=== PATIENT | male | born 1940 | race Caucasian/White ===

== ENCOUNTER → 2016-10-11 | Outpatient (CLI) | payer MEDICARE, BC ==
--- NOTE | 2016-10-11 10:22 | CT ---
EXAMINATION TYPE: CT chest wo con DATE OF EXAM: 10/11/2016 8:15 AM COMPARISON: NONE HISTORY: Cough for 3-[address] DLP: 460.4 mGycm, Automated exposure control for dose reduction was used. CONTRAST: None TECHNIQUE: Axial images were obtained at 1 mm thick sections at 10 mm intervals. This will limit po rtions of the examination which may not be visualized within the [id number]. Images were obtained in the prone and supine views. FINDINGS: Portion of the thyroid visualized is normal. No suspicious lung nodules or focal infiltrat es are present. Emphysematous blebs and bulla are present in the upper lung [place] larger on the righ t. There appears to be changes of pulmonary fibrosis within the lung bases bilaterally, greater on th e left. This appears stable between prone and supine views. Bronchiectasis is not identified. Signifi cant chronic bronchitis not readily apparent. No enlarged mediastinal or hilar adenopathy is evident. There is some shotty lymphadenopathy within the pretracheal space. The ascending aorta diameter at the level of the main pulmonary artery is 3.9 cm. The main pulmonary artery diameter at the bifurcation is 3.1 cm. Coronary artery calcification is noted. Limited CT sections are obtained through the upper abdomen. Abdomen is essentially unremarkable. IMPRESSIONS: 1. Emphysematous changes and pulmonary fibrosis.
== END | disposition home or self-care (01) ==
LOC: RADCTMAIN 07:42
PROVIDERS: ATTEND Internal Medicine
DX: J43.9 Emphysema, unspecified (principal); J84.10 Pulmonary fibrosis, unspecified
CPT/HCPCS: 71250

== ENCOUNTER → 2017-05-01 | Outpatient (CLI) | payer MEDICARE, BC ==
[2017-05-01 10:48] LABS: Blood Urea Nitrogen 18 mg/dL (9-20); Non-African American GFR(MDRD) >60 (>60 ml/min/1.73 sqM)
--- NOTE | 2017-05-01 11:34 | CT ---
EXAMINATION TYPE: CT angio abdomen DATE OF EXAM: 05/01/2017 COMPARISON: NONE HISTORY: AAA CT DLP: 719.8 mGycm, Automated Exposure Control for Dose Reduction was Utilized. CONTRAST: CTA scan of the abdomen and pelvis is performed without oral and without and with IV Contrast, patien t injected with 100 mL of Omnipaque 350. Three-D reconstructed images are created on independent work station and reviewed. FINDINGS: VASCULAR: There is moderate calcified plaque throughout the aorta. There is more prominent noncalcif ied plaque in the distal abdominal aorta. There is ectasia of the abdominal aorta with aneurysm measu ring 4.9 x 4.2 cm on axial image 52 series 5 identified. Approximately 60% of the lumen is thrombosed with roughly 40% patency remaining present. Length of aneurysm is approximately 5 cm on series 11 im age 15. Aneurysm does not extend into common iliac arteries bilaterally. There is patent celiac axis, SMA, bilateral single renal arteries, and HEIDI identified without signifi cant stenosis. Left renal artery shows branching shortly after its origin. There is moderate plaque i n common iliac arteries bilaterally extending into internal iliac arteries. No significant stenosis i n pelvic branch vessels is clearly seen up to level of groin or common femoral artery branching into proximal superficial and deep femoral arteries. LUNG BASES: There is basilar fibrosis with distortion and honeycombing bilaterally, left greater than right. Elevated left hemidiaphragm is seen. Coronary artery calcification is noted.. LIVER/GB: No significant abnormality is appreciated. PANCREAS: A few punctate calcifications in the pancreatic head are present of uncertain etiology, pos sibly product of chronic pancreatitis, remainder pancreas is within normal limits. SPLEEN: No significant abnormality is seen. ADRENALS: No significant abnormality is seen. KIDNEYS: No significant abnormality is seen. BOWEL: A few colonic diverticula are seen in the left and sigmoid colon. PROSTATE/SEMINAL VESICLES: There is suspected TURP type defect in superior prostate gland. LYMPH NODES: No greater than 1cm abdominal or pelvic lymph nodes are appreciated. OSSEOUS STRUCTURES: There is multilevel spurring in the thoracolumbar spine. Disc space narrowing wit h sclerosis and vacuum disc phenomenon lumbosacral junction is present. There is spur disc complex at this level. OTHER: There is small to moderate-sized fat-containing left inguinal hernia. IMPRESSION: 1. 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 Imaging monitoring in 6 months time is advised. Also consider surgi steven or endovascular referral.
== END | disposition home or self-care (01) ==
LOC: RADCTMAIN 10:06
PROVIDERS: ATTEND Thoracic Surgery (Cardiothoracic Vascular Surgery)
DX: I71.4 Abdominal aortic aneurysm, without rupture (principal); I74.09 Other arterial embolism and thrombosis of abdominal aorta
CPT/HCPCS: 82565; 84520; 74175; 36415; Q9967

== ENCOUNTER → 2017-11-08 | Outpatient (CLI) | payer MEDICARE, BC ==
[2017-11-08 07:10] LABS: Blood Urea Nitrogen 16 mg/dL (9-20)
--- NOTE | 2017-11-08 12:54 | CT ---
EXAMINATION TYPE: CT angio abd aorta wo/w con DATE OF EXAM: 11/08/2017 COMPARISON: 05/01/2017 INDICATION: AAA DLP: 377.10 mGycm, Automated exposure control for dose reduction was used. CONTRAST: 100 ml mL of Omnipaque 350. Study performed TECHNIQUE: Axial images were obtained from above the diaphragm to the pubic rami in the axial plane a t 5 mm thick sections. Reconstructed images are reviewed on the computer in the coronal plane. Thre e-D [id number] imaging performed separately by the technologist on the [employer] computer are presen bhavesh. FINDINGS: Limited CT sections are obtained the lung bases. Pulmonary fibrosis type changes are at the bilatera l lung bases left more so than right. There is a consolidation in the posterior lateral right lung ba se. Correlate for atelectasis or pneumonia.. CT ABDOMEN: Liver: Normal Spleen: Normal Pancreas: Normal Adrenal glands: The adrenal glands are normal. Gallbladder: Normal Kidneys: No masses are evident. No hydronephrosis is present. No cysts are present. Delayed images were obtained through the kidneys, which remain unremarkable. Aorta: There is a abdominal aortic aneurysm with an AP diameter of 5.1 cm. This terminates above the bifurcation and begins below the level of the renal arteries. This appears saccular extending to the right of midline. Vascular calcification is noted. Iliac vessels appear patent. Inferior vena cava: Normal. CT PELVIS: Loops of bowel within the abdomen and pelvis are normal. There are loops of bowel which are incom pletely distended or lack oral contrast limiting their evaluation. Appendix: Normal as visualized. Urinary bladder: Normal. Genitourinary structures: Osseous structures: No suspicious lytic or sclerotic lesions. IMPRESSIONS: 1. Saccular aneurysm infrarenal abdominal aorta terminating above the bifurcation with an AP diamete r of 5.1 cm. 2. Atelectasis or pneumonia posterior lateral right lung base. Pulmonary fibrosis is present.
== END | disposition home or self-care (01) ==
LOC: RADCTMAIN 06:31
PROVIDERS: ATTEND Thoracic Surgery (Cardiothoracic Vascular Surgery)
DX: I71.4 Abdominal aortic aneurysm, without rupture (principal)
CPT/HCPCS: 82565; 84520; 75635; 36415; Q9967